=== PATIENT | female | born 1995 | race Caucasian/White ===

== ENCOUNTER → 2017-03-13 | Outpatient (CLI) | payer OTHER ==
[~2017-03-13] MED LIST: CEPH500C PO; ONDA4TAB10 SL
[2017-03-13 13:12] LABS: BASO % 0.3 %; BASO ABS # 0.02 K/uL (0-0.2); COMPLETE YES; EOS % 0.8 %; HEMATOCRIT 37.5 % (37-47); IG% 0.1 %; LYMPH % 19.2 %; LYMPH ABS # 1.47 K/uL (1.2-3.4); MEAN CELL VOLUME 92.6 fL (80-100); MEAN CORPUSCULAR HEMOGLOBIN 32.1 pg (25-34); MEAN CORPUSCULAR HGB CONC 34.7 g/dl (32-36); MEAN PLATELET VOLUME 11.5 fL (7.4-10.4); MONO % 11.4 %; NEUT % 68.2 %; PLATELET COUNT 212 K/uL (130-400); RED BLOOD COUNT 4.05 M/uL (4.2-5.4); WHITE BLOOD COUNT 7.66 K/uL (4.8-10.8)
[2017-03-15 01:19] LABS: CHLAMYDIA TRACH RNA*** NOT DETECTED (NOT DETECTED); GC (NEIS GONORRHOEAE)RNA** NOT DETECTED (NOT DETECTED)
== END | disposition home or self-care (01) ==
LOC: C.LAB1850 10:25
PROVIDERS: ATTEND Obstetrics & Gynecology
DX: Z34.91 Encounter for supervision of normal pregnancy, unspecified, first trimester (principal)

== ENCOUNTER 2017-04-10 14:06 | Emergency (ER) | payer OTHER ==
[~2017-04-10] VITALS: Ht 157.5 cm; Wt 45.0 kg
[~2017-04-10 14:06] MED LIST changes: -PREN1CHW PO
[2017-04-10 14:07] VITALS: TEMP 36.8; Ht 157.5 cm; Wt 45.0 kg
[2017-04-10] MEDS ORDERED: SODIUM CHLORIDE 0.9% 1000ML 2,000 ML IV STA (14:20)
[2017-04-10] MEDS ORDERED: ONDANSETRON INJ 2 MG/ML 2 ML VIAL IV STA (14:20)
[2017-04-10] MEDS ORDERED: FAMOTIDINE 20MG/5ML IV PUSH IV STA (14:51)
[2017-04-10 15:00] LABS: BASO % 0.2 %; BASO ABS # 0.02 K/uL (0-0.2); COMPLETE YES; HEMATOCRIT 40.4 % (37-47); IG% 0.2 %; LYMPH % 6.7 %; LYMPH ABS # 0.85 K/uL (1.2-3.4); MEAN CELL VOLUME 91.6 fL (80-100); MEAN CORPUSCULAR HEMOGLOBIN 32.4 pg (25-34); MEAN CORPUSCULAR HGB CONC 35.4 g/dl (32-36); MEAN PLATELET VOLUME 10.6 fL (7.4-10.4); MONO % 6.6 %; NEUT % 86.3 %; PLATELET COUNT 216 K/uL (130-400); RED BLOOD COUNT 4.41 M/uL (4.2-5.4); WHITE BLOOD COUNT 12.67 K/uL (4.8-10.8)
[2017-04-10 15:13] LABS: BUN/CREATININE RATIO 20.2 (10-20); CALCIUM 9.9 mg/dl (8.5-10.1); CREATININE 0.78 mg/dl (0.60-1.20); MAGNESIUM 1.9 mg/dl (1.8-2.4)
[2017-04-10] MEDS ORDERED: PREN1CHW PO (15:48)
[2017-04-10] MEDS ORDERED: ONDANSETRON HOME PACK 4MG OD TAB PO ONE (16:30)
--- NOTE | 2017-04-10 16:32 | EMERGENCY ROOM VISIT NOTE ---
History Report prepared by Royal: Bjorn Escalante Under the Supervision of: Dr. Debbie Velasquez M.D. First contact with patient: 14:10 Chief Complaint: VOMITING Stated Complaint: EXCESS VOMITTING, NOT GETTING FLUIDS DURING PREG Nursing Triage Summary: pt sent to the ED by OB for n/v for several days pt is 12 wks preg no c/o vag bleeding History of Present Illness The patient is a 22 year old female who presents to the Emergency Room with complaints of persistent vomiting beginning three days ago. She is 12 weeks with her first . She was seen by her OBGYN today and was referred to the ED. The patient states that she has been unable to keep down food or drink. She also complains of chest pain and nausea. She denies known fevers or vaginal bleeding. Source of History: patient Onset: Three days ago Quality: other (vomiting) Timing: other (persistent) Associated Symptoms: + chest pain, + nausea, No fevers Note: The patient denies vaginal bleeding. Review of Systems See HPI for pertinent positives & negatives. A total of 10 systems reviewed and were otherwise negative. Past Medical & Surgical Medical Problems: (1) Ovarian cyst Family History Cancer Gallbladder disease Heart disease Hypertension Kidney disease Kidney stones Seizures Social History Smoking Status: Never Smoker Alcohol Use: none Drug Use: none Marital Status: single Housing Status: lives with family Occupation Status: student Current/Historical Medications Scheduled Ondasetron Odt (Zofran Odt), 4 MG SL Q6H Multivitamins & Burnett (Alive Multi-Thelma 0.4-25 mg), 1 TAB PO DAILY Allergies Coded Allergies: No Known Allergies (Unverified , 03/03/17) Physical Exam Vital Signs Date Time Temp Pulse Resp B/P (MAP) Pulse Ox O2 Delivery O2 Flow Rate FiO2 04/10/17 16:39 84 16 114/70 98 04/10/17 15:36 86 15 100 04/10/17 15:31 103/69 04/10/17 15:06 80 18 98 04/10/17 15:05 80 04/10/17 15:01 110/72 04/10/17 14:56 77 20 107/69 97 Room Air 04/10/17 14:07 36.8 120 16 132/76 92 Room Air Physical Exam Vital signs reviewed. General: Well-appearing female, in no significant distress. HEENT: No scleral icterus, PERRLA, neck supple. Atraumatic. Dry mucous membranes. Cardiovascular: Regular rate and rhythm, no extra sounds. Pulmonary: Clear to auscultation bilaterally, normal work of breathing. Abdomen: Soft, nontender, nondistended, positive bowel sounds. Musculoskeletal: Atraumatic, no peripheral edema. Neurologic: Patient awake alert and oriented x 3, full strength in all 4 extremities. Cranial nerves 2 through 12 grossly intact. Skin: Warm, dry, no rash Medical Decision & Procedures Laboratory Results 04/10/17 14:47 Red Blood Count 4.41, Mean Corpuscular Volume 91.6, Mean Corpuscular Hemoglobin 32.4, Mean Corpuscular Hemoglobin Concent 35.4, Mean Platelet Volume 10.6, Neutrophils (%) (Auto) 86.3, Lymphocytes (%) (Auto) 6.7, Monocytes (%) (Auto) 6.6, Eosinophils (%) (Auto) 0.0, Basophils (%) (Auto) 0.2, Neutrophils # (Auto) 10.94, Lymphocytes # (Auto) 0.85, Monocytes # (Auto) 0.83, Eosinophils # (Auto) 0.00, Basophils # (Auto) 0.02 04/10/17 14:47 Test 04/10/17 00:00 04/10/17 14:47 Urine Color YELLOW Urine Appearance CLEAR (CLEAR) Urine pH 5.0 (4.5-7.5) Urine Specific [place] 1.028 (1.000-1.030) Urine Protein TRACE (NEG) Urine Glucose (UA) NEG (NEG) Urine Ketones 4+ (NEG) Urine Occult Blood NEG (NEG) Urine Nitrite NEG (NEG) Urine Bilirubin NEG (NEG) Urine Urobilinogen NEG (NEG) Urine Leukocyte Esterase MODERATE (NEG) Urine WBC (Auto) >30 /hpf (0-5) Urine RBC (Auto) 0-4 /hpf (0-4) Urine Hyaline Casts (Auto) 1-5 /lpf (0-5) Urine Epithelial Cells (Auto) >30 /lpf (0-5) Urine Bacteria (Auto) 2+ (NEG) White Blood Count 12.67 K/uL (4.8-10.8) Red Blood Count 4.41 M/uL (4.2-5.4) Hemoglobin 14.3 g/dL (12.0-16.0) Hematocrit 40.4 % (37-47) Mean Corpuscular Volume 91.6 fL (80-100) Mean Corpuscular Hemoglobin 32.4 pg (25-34) Mean Corpuscular Hemoglobin Concent 35.4 g/dl (32-36) Platelet Count 216 K/uL (130-400) Mean Platelet Volume 10.6 fL (7.4-10.4) Neutrophils (%) (Auto) 86.3 % Lymphocytes (%) (Auto) 6.7 % Monocytes (%) (Auto) 6.6 % Eosinophils (%) (Auto) 0.0 % Basophils (%) (Auto) 0.2 % Neutrophils # (Auto) 10.94 K/uL (1.4-6.5) Lymphocytes # (Auto) 0.85 K/uL (1.2-3.4) Monocytes # (Auto) 0.83 K/uL (0.11-0.59) Eosinophils # (Auto) 0.00 K/uL (0-0.5) Basophils # (Auto) 0.02 K/uL (0-0.2) RDW Standard Deviation 42.1 fL (36.4-46.3) RDW Coefficient of Variation 12.5 % (11.5-14.5) Immature Granulocyte % (Auto) 0.2 % Immature Granulocyte # (Auto) 0.03 K/uL (0.00-0.02) Anion Gap 15.0 mmol/L (3-11) Est Creatinine Clear Calc Drug Dose 81.0 ml/min Estimated GFR () 126.0 Estimated GFR (Non- 108.7 BUN/Creatinine Ratio 20.2 (10-20) Calcium Level 9.9 mg/dl (8.5-10.1) Magnesium Level 1.9 mg/dl (1.8-2.4) Total Bilirubin 0.5 mg/dl (0.2-1) Direct Bilirubin 0.2 mg/dl (0-0.2) Aspartate Amino Transf (AST/SGOT) 16 U/L (15-37) Alanine Aminotransferase (ALT/SGPT) 22 U/L (12-78) Alkaline Phosphatase 49 U/L (45-117) Total Protein 8.2 gm/dl (6.4-8.2) Albumin 4.2 gm/dl (3.4-5.0) Lipase 123 U/L (73-393) Laboratory results per my review. Medications Administered Medications (Trade) Dose Ordered Sig/Maria Isabel Route Start Time Stop Time Status Last Admin Dose Admin Sodium Chloride 2,000 ml @ 999 mls/hr Q2H1M STAT IV 04/10/17 14:20 04/10/17 16:20 DC 04/10/17 14:51 999 MLS/HR Ondansetron HCl (Zofran Inj) 4 mg NOW STAT IV 04/10/17 14:20 04/10/17 14:23 DC 04/10/17 14:51 4 MG Famotidine (Pepcid 20mg Iv Push) 20 mg ONE STAT IV 04/10/17 14:51 04/10/17 14:53 DC 04/10/17 14:59 20 MG Ondansetron HCl (ZOFRAN ODT 4MG Home Pack) 1 homepack UD ONCE PO 04/10/17 16:30 04/10/17 16:31 DC 04/10/17 16:36 1 HOMEPACK ED Course 1425: Past medical records reviewed. The patient was evaluated in room B8. A complete history and physical examination was performed. 1420: Ordered Zofran Inj 4 mg IV, Sodium Chloride 2000 ml @ 999 mls/hr IV. 1451: Ordered Pepcid 20 mg IV. 1620: Upon reevaluation, the patient appeared to have improvement of her symptoms. I discussed findings with her. She verbalized agreement of the treatment plan. The patient was discharged home. 1630: Ordered Zofran Odt 4 mg Home Pack PO. Medical Decision Differential diagnosis: Etiologies such as gastroenteritis, food borne illness, infections, appendicitis , diverticulitis, inflammatory bowel disease, obstruction, GI bleed, biliary pathology, as well as others were entertained. This patient was evaluated and appeared to be in some discomfort. IV access was obtained and laboratory work was drawn. The patient was placed on the surveillance monitor and found to be in a normal sinus rhythm. She was hydrated with normal saline solution, given IV Zofran and Pepcid. Laboratory work is fairly unrevealing. UA is questionable for infection as it is largely contaminated. This will be sent for culture. The patient is feeling much improved. She was given 4 mg Zofran home pack. She will contact the OIL SPREADER OPERATOR office tomorrow by phone for further recommendations regarding nausea and . She was discharged with care of her significant other and will return to the ER for worsening of symptoms or any medical concerns. Medication Reconcilliation Current Medication List: was personally reviewed by me Blood Pressure Screening Patient's blood pressure: Elevated blood pressure Blood pressure disposition: Elevated BP felt to be situational Impression Primary Impression: Vomiting Scribe Attestation The scribe's documentation has been prepared under my direction and personally reviewed by me in its entirety. I confirm that the note above accurately reflects all work, treatment, procedures, and medical decision making performed by me. Departure Information Dispostion Home / Self-Care Referrals No Doctor, Assigned (PCP) Forms HOME CARE DOCUMENTATION FORM, IMPORTANT VISIT INFORMATION Patient Instructions [facility] Additional Instructions Diagnosis: Vomiting and Please drink plenty of clear fluids. Zofran 4 mg ODT every 6 hours as needed for nausea. Contact your OIL SPREADER OPERATOR physician's office tomorrow for recommendations regarding nausea/vomiting. Return to the emergency department for worsening of symptoms or any medical concerns.
[2017-04-10 16:37] LABS: URINE APPEARANCE CLEAR (CLEAR); URINE BILIRUBIN NEG (NEG); URINE COLOR YELLOW; URINE EPITHELIAL CELL AUTO >30 /lpf (0-5); URINE NITRITE NEG (NEG); URINE SPECIFIC GRAVITY 1.028 (1.000-1.030); UROBILINOGEN NEG (NEG); ZZUR CULT IF INDIC CLEAN CATCH YES
[2017-04-10 16:39] VITALS: BP 114/70; PULSE 84; O2SAT 98
[2017-04-10 16:49] LABS: MANUAL MICROSCOPIC REQUIRED? NO; REVIEW REQ? NO
== END 2017-04-10 16:47 | disposition home or self-care (01) ==
LOC: C.EDB 14:07
DX: O21.9 Vomiting of pregnancy, unspecified (principal); Z3A.12 12 weeks gestation of pregnancy; N83.209 Unspecified ovarian cyst, unspecified side; Z80.9 Family history of malignant neoplasm, unspecified; Z83.79 Family history of other diseases of the digestive system; Z82.49 Family history of ischemic heart disease and other diseases of the circulatory system; Z84.1 Family history of disorders of kidney and ureter; Z82.0 Family history of epilepsy and other diseases of the nervous system

== ENCOUNTER → 2017-04-10 | Outpatient (CLI) | payer OTHER ==
[~2017-04-10] MED LIST changes: +PREN1CHW PO
[2017-04-10 16:08] LABS: URINE APPEARANCE CLEAR (CLEAR); URINE BILIRUBIN NEG (NEG); URINE COLOR YELLOW; URINE EPITHELIAL CELL AUTO >30 /lpf (0-5); URINE NITRITE NEG (NEG); URINE SPECIFIC GRAVITY 1.031 (1.000-1.030); UROBILINOGEN NEG (NEG)
[2017-04-10 16:13] LABS: MANUAL MICROSCOPIC REQUIRED? NO; REVIEW REQ? NO
== END | disposition home or self-care (01) ==
LOC: C.LABSPEC 15:40
PROVIDERS: ATTEND Obstetrics & Gynecology
DX: Z34.91 Encounter for supervision of normal pregnancy, unspecified, first trimester (principal); Z3A.00 Weeks of gestation of pregnancy not specified

== ENCOUNTER → 2017-05-09 | Outpatient (CLI) | payer OTHER ==
[~2017-05-09] MED LIST changes: -CEPH500C PO; +PREN1CHW PO
[2017-05-09 15:25] LABS: GTGD 50 Grams
[2017-05-11 14:27] LABS: AFP CONCENTRATION 26.1 NG/ML; AFP MULTIPLE OF MEDIAN 0.63; AFPTS GESTATIONAL AGE 16.1 WEEKS; AFPTS INSULIN DEP DIABETIC? NO; AFPTS MATERNAL WT 109 LBS; ALPHA-FETOPROTEIN RACE CAUCASIAN=W; EDD DETERMINED BY ULTRASOUND; ESTRIOL MULTIPLE OF MEDIAN 1.39; HISTORY OF NTD NO; INHIBIN A 110 PG/ML; INHIBIN A MOM 0.54; REPEAT SAMPLE? NO; hCG MULTIPLE OF MEDIAN 0.97
== END | disposition home or self-care (01) ==
LOC: C.LAB1850 12:30
PROVIDERS: ATTEND Obstetrics & Gynecology
DX: Z34.02 Encounter for supervision of normal first pregnancy, second trimester (principal)

== ENCOUNTER → 2017-06-07 | Outpatient (CLI) | payer OTHER | END | disposition home or self-care (01) | LOC: C.LABSPEC 18:00 | PROVIDERS: ATTEND Nurse Practitioner Adult Health | DX: R10.9 Unspecified abdominal pain (principal) ==

== ENCOUNTER → 2017-06-13 | Outpatient (CLI) | payer OTHER ==
--- NOTE | 2017-06-13 12:49 | DIAGNOSTIC IMAGING REPORT ---
RENAL ULTRASOUND CLINICAL HISTORY: Calcium oxalate crystals in urine. Right-sided back pain. 20 weeks . COMPARISON STUDY: None. TECHNIQUE: Sonography of the kidneys and the urinary bladder was performed. FINDINGS: The right kidney measures 9.9 x 4.5 x 5.5 cm and the left measures 9.6 x 4.4 x 4.9 cm. There is mild bilateral hydronephrosis. Echogenic focus within a right calyx could reflect a small stone. Both ureteral jets were identified. Renal echogenicity, size and cortical thickness are normal. IMPRESSION: 1. Mild bilateral hydronephrosis. 2. Visualization of both ureteral jets. 2. Possible punctate right renal calculus. Electronically signed by: Aj Breen M.D. 06/13/2017 12:48 PM Dictated Date/Time: 06/13/2017 12:46 PM
== END | disposition home or self-care (01) ==
LOC: C.ULTR 12:04
PROVIDERS: ATTEND Nurse Practitioner Adult Health
DX: R82.99 Other abnormal findings in urine (principal)

== ENCOUNTER → 2017-08-04 | Outpatient (CLI) | payer OTHER ==
[2017-08-04 13:15] LABS: HEMATOCRIT 36.2 % (37-47); HEMOGLOBIN 12.2 g/dL (12.0-16.0)
== END | disposition home or self-care (01) ==
LOC: C.LAB1850 11:31
PROVIDERS: ATTEND Obstetrics & Gynecology
DX: Z34.03 Encounter for supervision of normal first pregnancy, third trimester (principal)

== ENCOUNTER → 2017-09-29 | Outpatient (CLI) | payer OTHER ==
[~2017-09-29] MED LIST changes: -ONDA4TAB10 SL
== END | disposition home or self-care (01) ==
LOC: C.LABSPEC 15:48
PROVIDERS: ATTEND Obstetrics & Gynecology
DX: Z34.03 Encounter for supervision of normal first pregnancy, third trimester (principal); Z3A.00 Weeks of gestation of pregnancy not specified

== ENCOUNTER → 2017-12-11 | Outpatient (CLI) | payer OTHER | END | disposition home or self-care (01) | LOC: C.PAPS 17:50 | PROVIDERS: ATTEND Obstetrics & Gynecology | DX: Z39.2 Encounter for routine postpartum follow-up (principal) ==

== ENCOUNTER 2022-07-27 07:28 | Inpatient (IN) ==
[2022-07-27] MEDS ORDERED: OXYTOCIN 30 UNITS/500 ML BAG IV PRN ×2 (14:03→20:10)
[2022-07-27] MEDS ORDERED: LIDOCAINE 1% LOCAL 20 ML VIAL INFIL PRN (14:03)
--- NOTE | 2022-07-27 14:09 | History & Physical Report ---
Date of Service July 27, 2022 History of Present Illness Chief Complaint: onset of contractions Primary Care Provider: Renetta Joshi MD 27 F P1001 at 40.2 weeks admitted in early labor. Allergies Allergy/AdvReac Type Severity Reaction Status Date / Time No Known Allergies Allergy Verified 12/06/21 16:12 Home Medications Medication Instructions Recorded Confirmed Type prenat.vits,jaylen,[id number] 1 tab PO DAILY 07/27/22 07/27/22 History Patient History Medical History Encounter for contraceptive management Gave to child recently Surgical History Hx of tonsillectomy Family History Grandmother (Paternal) Cancer Mother Migraine Father Substance abuse Daughter No problems noted. 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 Current Living Situation: Family Current Living Situation Comment: Lives with fiance and daughter current occupational status: employed and unemployed current occupation: Homemaker Other Information That Helps Us Care for You: No Feels Safe at Home: Yes Safety Concerns: Feels Safe At This Time Childhood Exposure to Second-Hand Smoke: Yes (father smoked.) caffeine: Yes (Tea on occasion.) during the past year weight has: remained stable Dental Care, Regularly: Yes Physical Activity Frequency: Daily Seatbelt Use: always Sunscreen Use: Yes Gender Identity: Female Assistive Devices: Glasses Assistive Devices Comment: pt. wears glasses occasionally OB History x1 PERIOPERATIVE NURSE History neg Review of Systems All systems reviewed & are unremarkable except as noted in HPI & below Physical Exam Constitutional: WD/WN, vitals as above Eyes: PERRL, conjunctivae normal, anicteric sclerae Respiratory: normal respiratory effort, lungs clear to auscultation Cardiovascular: RRR, no murmur, no edema Musculoskeletal: Extremities: extremities normal to inspection Skin: no rashes, warm and dry Neurologic: patellar DTR's 2+ bilat, sensation intact Psychiatric: A+Ox3, euthymic affect Genitourinary: OB Exam Abdomen: + fundal height and + vertex Manual OB Exam: + cervical dilation 4 cm, + cervical effacement 70% and + station -2 OB Exam Monitor Tracing: + external FHT monitor used, + external uterine monitor used, + category I and + normal FHT variability cervix has changed from 2 cm to 4 cm and more uncomfortable. Will admit in labor. Results & Data Vital Signs (Past 12 Hours) Vital Signs Temp Pulse Resp BP 07/27/22 12:04 36.6 C 84 20 112/75 07/27/22 10:43 103 H 20 120/72 07/27/22 07:34 36.7 C 89 20 113/77 Code Status & VTE Plan VTE Prophylaxis Plan VTE Prophylaxis will be ordered: No Monitoring External Monitor Cat 1
--- NOTE | 2022-07-27 14:42 | Communication Note ---
Date of Service: July 27, 2022 Patient stated having increasing labor pains. The epidural was bolused with 4mL of lido 2% with epi 1:200K. The patient stated her labor pains was improved. VSS throughout.
[2022-07-27 14:48] LABS: Hematocrit (blood only) 35.1 % (37.0-47.0); Hemoglobin 12.1 g/dl (12.0-16.0); Mean Corpuscular Hemoglobin 30.6 pg (25.0-34.0); Mean Corpuscular Hgb Conc 34.5 g/dL (32.0-36.0); Mean Corpuscular Volume 88.6 fL (80.0-100.0); Mean Platelet Volume 11.6 fL (9.4-12.4); Platelet Count 182 K/uL (130-400); RDW Coefficient of Variation 12.9 % (11.5-14.5); RDW Standard Deviation 41.3 fL (36.4-46.3); Red Blood Count 3.96 M/uL (4.20-5.40)
--- NOTE | 2022-07-27 15:12 | Labor Progress Brief Note ---
Date of Service July 27, 2022 Assessment & Plan Admission and Anticipated Discharge Date Admission Date: July 27, 2022 Physical Exam Genitourinary: Manual OB Exam: + cervical dilation 4 cm and 5 cm, + cervical effacement 70%, + station -2 and + amniotic fluid clear OB Exam Monitor Tracing: + external FHT monitor used, + external uterine monitor used, + category I and + normal FHT variability AROM with Amni-hook clear fluid Results & Data Vital Signs (Past 12 Hours) Vital Signs Temp Pulse Resp BP 07/27/22 12:04 36.6 C 84 20 112/75 07/27/22 10:43 103 H 20 120/72 07/27/22 07:34 36.7 C 89 20 113/77
[2022-07-27] MEDS: LACTATED RINGER'S 1,000 ML IV PRN ×2 (16:33→17:31)
[2022-07-27] MEDS ORDERED: ePHEDrine sulfate 50 MG/ML AMP ONE (16:42)
[2022-07-27] MEDS ORDERED: BUPIVACAINE 0.25% PF 30 ML VIAL ONE (16:43)
[2022-07-27] MEDS ORDERED: fentaNYL citrate PF 100 MCG/2 ML VIAL ONE (16:43)
[2022-07-27] MEDS ORDERED: fentaNYL 2MCG/ML ROPIVACAINE 1.25MG/ML 100 ML BAG EPI ONE (16:43)
[2022-07-27] MEDS ORDERED: SODIUM CHLORIDE 0.9% PF INJ 10 ML VIAL ONE (16:43)
--- NOTE | 2022-07-27 16:48 | Anesthesiology Consultation ---
Date of Service July 27, 2022 Assessment & Plan Chart Review Chart Review: Acceptable Risk for Labor Epidural (Patient requests spinal instead of epidural) Consults Requested none ASA ASA2 Proposed Anesthesia Anesthesia Type: Spinal Risk / Benefits Reviewed With: PT / POA / Parent / Guardian, Accepts Plan and Informed Consent Obtained History Height/Weight Height: 5 ft 2 in Weight: 67.041 kg Allergies Allergy/AdvReac Type Severity Reaction Status Date / Time No Known Allergies Allergy Verified 12/06/21 16:12 Medications Home Medications Medication Instructions Recorded Confirmed Last Taken prenat.vits,jaylen,[id number] 1 tab PO DAILY 07/27/22 07/27/22 Unknown Active Medications Generic Name Dose Route Start Last Admin Trade Name Freq PRN Reason Stop Dose Admin Lactated Ringer's 1,000 mls @ 125 mls/hr 07/27/22 14:03 07/27/22 16:33 Lr IV 07/29/22 14:02 999 mls/hr .Q8H PRN Administration L&D Protocol Protocol Past Medical History Medical History Encounter for contraceptive management Gave to child recently Exercise / Class Metabolic Activity II 4-5 Yardwork/Stairs/Walk up hill Past Family History Family History Grandmother (Paternal) Cancer Mother Migraine Father Substance abuse Daughter No problems noted. Denies family history of Ovarian cancer Prostate cancer Myocardial infarction Breast cancer Colorectal cancer Past Surgical History Surgical History Hx of tonsillectomy Past Anesthesia History No Hx of Anesthesia Complications and No Family Hx of Anesthesia Complications History of PONV No Hx of PONV and No Hx of Motion Sickness Social History Smoking Status: Never smoker Hx Alcohol Use: No Hx Substance Use: No substance use type: does not use Physical Exam Vital Signs Last Vital Signs Temp 98.1 F 07/27/22 16:05 Pulse 72 07/27/22 16:05 Resp 20 07/27/22 16:05 BP 111/71 07/27/22 16:05 ENMT Mouth: no dentition abnormality Thyromental Distance: > or= 3.5 Finger Breadths Mallampati Class: II Neck normal visual inspection Respiratory normal respiratory effort Auscultation: lungs clear to auscultation bilaterally Cardiovascular Rate/Rhythm: regular rate and regular rhythm Testing Laboratory Results 07/27/22 14:22
--- NOTE | 2022-07-27 19:57 | Delivery Summary ---
Vaginal Delivery Summary Date of Service July 27, 2022 Vaginal Delivery Summary Delivery Note live male JUNA F over intact perineum with delayed cord clamping with nuchal cord x1 reduced at delivery of head. Apgars and weight pending. Cord blood obtained followed by spontaneous delivery of intact placenta. No tears. Small right upper labial swelling that may be beginning of a hematoma but could also be inflammation as patient states that this are has been swollen in the past e naseem when not . EBL 200 ml. Final sponge and instrument count are correct. Mom and baby stable.
[2022-07-27] MEDS ORDERED: bisacodyL 10 MG SUPP PR PRN (20:10)
[2022-07-27] MEDS ORDERED: HYDROCORTISONE ACETATE 25 MG SUPP PR PRN (20:10)
[2022-07-27] MEDS ORDERED: DIPHTHERIA/TETANUS/PERTUSSIS 0.5mL SYR/VIAL (Age 7+yrs) IM ONE (20:10)
[2022-07-27] MEDS ORDERED: ACETAMINOPHEN 325 MG TAB PO PRN (20:10)
[2022-07-27] MEDS ORDERED: BENZOCAINE 20% AER SPR 82.5 GM CAN EXT PRN (20:10)
[2022-07-27] MEDS ORDERED: OXYTOCIN 20 UNITS in LACTATED RINGER'S 1,000 ML IV SCH (20:10)
[2022-07-27] MEDS: DOCUSATE SODIUM 100 MG CAP PO SCH (20:51)
[2022-07-27] MEDS: IBUPROFEN 600 MG TAB PO PRN (20:51)
[2022-07-28] MEDS: IBUPROFEN 600 MG TAB PO PRN ×3 (00:53→19:53)
[2022-07-28 06:52] LABS: Hematocrit (blood only) 30.1 % (37.0-47.0); Hemoglobin 10.2 g/dl (12.0-16.0); Mean Corpuscular Hemoglobin 30.2 pg (25.0-34.0); Mean Corpuscular Hgb Conc 33.9 g/dL (32.0-36.0); Mean Corpuscular Volume 89.1 fL (80.0-100.0); Mean Platelet Volume 11.6 fL (9.4-12.4); Platelet Count 164 K/uL (130-400); Red Blood Count 3.38 M/uL (4.20-5.40); White Blood Count 17.33 K/ul (4.8-10.8)
[2022-07-28] MEDS: DOCUSATE SODIUM 100 MG CAP PO SCH ×2 (08:30→21:44)
[2022-07-28] MEDS: PRENATAL VITAMIN 1 TAB PO SCH ×2 (08:30)
[2022-07-28] MEDS: FERROUS SULFATE 325 MG TAB PO SCH (08:30)
--- NOTE | 2022-07-28 09:06 | Anesthesiology Progress Note ---
Date of Service July 28, 2022 Anesthesia Post Procedure Vital Signs Vital Signs: Temp Pulse Pulse Resp BP BP Pulse Ox 07/28/22 04:00 98.1 F 100 H 18 117/70 07/27/22 23:00 97.7 F 106 H 18 114/73 98 07/27/22 20:50 18 07/27/22 20:35 18 07/27/22 20:20 98.1 F 18 07/27/22 20:05 18 98 07/27/22 19:50 18 07/27/22 17:59 97.7 F 20 07/27/22 17:00 98.2 F 20 07/27/22 21:50 114 H 116/68 07/27/22 21:35 122 H 111/70 07/27/22 21:20 96 H 116/72 07/27/22 21:05 109 H 110/71 07/27/22 20:50 97 H 108/66 07/27/22 20:35 94 H 108/62 07/27/22 20:20 108 H 113/69 07/27/22 20:05 103 H 111/64 07/27/22 19:50 116 H 112/68 07/27/22 19:40 122 H 93 07/27/22 19:39 125 H 127/64 07/27/22 19:30 18 07/27/22 19:30 98.2 F 18 07/27/22 19:32 136 H 88 L 07/27/22 19:27 110 H 96 07/27/22 19:22 126 H 94 07/27/22 19:17 93 07/27/22 19:17 112 H 07/27/22 19:17 105 H 90 07/27/22 19:12 110 H 98 07/27/22 19:10 99 H 122/82 07/27/22 19:07 107 H 96 07/27/22 19:02 101 H 96 07/27/22 18:57 109 H 96 07/27/22 18:55 108 H 117/70 07/27/22 18:52 99 H 97 07/27/22 18:47 99 H 97 07/27/22 18:42 103 H 97 07/27/22 18:40 88 120/78 07/27/22 18:37 112 H 97 07/27/22 18:32 90 97 07/27/22 18:27 93 H 97 07/27/22 18:25 93 H 116/69 07/27/22 18:22 86 97 07/27/22 18:17 92 H 97 07/27/22 18:12 91 H 97 07/27/22 18:09 89 101/55 L 07/27/22 18:07 91 H 99 07/27/22 18:02 98 H 97 07/27/22 17:57 99 H 97 07/27/22 17:54 95 H 100/55 L 07/27/22 17:52 102 H 96 07/27/22 17:47 104 H 95 07/27/22 17:42 96 07/27/22 17:42 98 H 07/27/22 17:42 96 H 108/57 L 07/27/22 17:37 89 96 07/27/22 17:32 96 H 96 07/27/22 17:27 96 H 97 07/27/22 17:25 86 112/67 07/27/22 17:22 96 H 97 07/27/22 17:17 86 97 07/27/22 17:12 88 96 07/27/22 17:07 90 97 07/27/22 17:08 86 115/74 07/27/22 17:06 95 H 113/72 07/27/22 17:04 79 111/74 07/27/22 17:02 96 07/27/22 17:02 84 07/27/22 17:02 78 119/78 07/27/22 17:00 69 115/77 07/27/22 16:57 77 97 07/27/22 16:58 77 111/73 94 07/27/22 16:55 100 H 116/70 07/27/22 16:53 88 119/75 07/27/22 16:52 102 H 98 07/27/22 16:05 98.1 F 72 20 111/71 07/27/22 12:04 97.9 F 84 20 112/75 07/27/22 10:43 103 H 20 120/72 O2 Del Method 07/28/22 04:00 07/27/22 23:00 Room Air 07/27/22 20:50 07/27/22 20:35 07/27/22 20:20 07/27/22 20:05 07/27/22 19:50 07/27/22 17:59 07/27/22 17:00 07/27/22 21:50 07/27/22 21:35 07/27/22 21:20 07/27/22 21:05 07/27/22 20:50 07/27/22 20:35 07/27/22 20:20 07/27/22 20:05 07/27/22 19:50 07/27/22 19:40 07/27/22 19:39 07/27/22 19:30 07/27/22 19:30 07/27/22 19:32 07/27/22 19:27 07/27/22 19:22 07/27/22 19:17 07/27/22 19:17 07/27/22 19:17 07/27/22 19:12 07/27/22 19:10 07/27/22 19:07 07/27/22 19:02 07/27/22 18:57 07/27/22 18:55 07/27/22 18:52 07/27/22 18:47 07/27/22 18:42 07/27/22 18:40 07/27/22 18:37 07/27/22 18:32 07/27/22 18:27 07/27/22 18:25 07/27/22 18:22 07/27/22 18:17 07/27/22 18:12 07/27/22 18:09 07/27/22 18:07 07/27/22 18:02 07/27/22 17:57 07/27/22 17:54 07/27/22 17:52 07/27/22 17:47 07/27/22 17:42 07/27/22 17:42 07/27/22 17:42 07/27/22 17:37 07/27/22 17:32 07/27/22 17:27 07/27/22 17:25 07/27/22 17:22 07/27/22 17:17 07/27/22 17:12 07/27/22 17:07 07/27/22 17:08 07/27/22 17:06 07/27/22 17:04 07/27/22 17:02 07/27/22 17:02 07/27/22 17:02 07/27/22 17:00 07/27/22 16:57 07/27/22 16:58 07/27/22 16:55 07/27/22 16:53 07/27/22 16:52 07/27/22 16:05 07/27/22 12:04 07/27/22 10:43 Pain Intensity Bilateral Episiotomy/Laceration: Pain Intensity: 2 Transfer of Care Handoff Completed per policy Notes Mental Status: alert / awake / arousable and participated in evaluation Nausea / Vomiting: adequately controlled Pain: adequately controlled Airway Patency, RR, SpO2: stable & adequate BP & HR: stable & adequate Hydration State: stable & adequate Neuraxial Anesthesia: was administered and sensory block is resolving Anesthetic Complications: no major complications apparent and Pt Satisfied with anesthetic care
--- NOTE | 2022-07-28 09:34 | Obstetrical Progress Note ---
Date of Service July 28, 2022 Assessment & Plan Admission and Anticipated Discharge Date Admission Date: July 27, 2022 Subjective Patient is seen and examined. She feels well, no complaints. Ambulating without dizziness Voiding without difficulty Tolerating regular diet with out N&V Bleeding is minimal No fever/ chills/ CP/ SOB/ N&V/ Leg pain Breast feeding without problems Vital Signs Temp Pulse Pulse Resp BP BP Pulse Ox 07/28/22 04:00 36.7 C 100 H 18 117/70 07/27/22 23:00 36.5 C 106 H 18 114/73 98 07/27/22 21:50 114 H 116/68 07/27/22 21:35 122 H 111/70 O2 Del Method 07/28/22 04:00 07/27/22 23:00 Room Air 07/27/22 21:50 07/27/22 21:35 Lab Results 07/27/22 07/27/22 07/28/22 Range/Units 14:00 14:22 05:54 WBC 16.00 H 17.33 H (4.8-10.8) K/ul RBC 3.96 L 3.38 L (4.20-5.40) M/uL Hgb 12.1 10.2 L (12.0-16.0) g/dl Hct 35.1 L 30.1 L (37.0-47.0) % MCV 88.6 89.1 (80.0-100.0) fL MCH 30.6 30.2 (25.0-34.0) pg MCHC 34.5 33.9 (32.0-36.0) g/dL RDW Std Deviation 41.3 42.0 (36.4-46.3) fL RDW Coeff of Steve 12.9 13.0 (11.5-14.5) % Plt Count 182 164 (130-400) K/uL MPV 11.6 11.6 (9.4-12.4) fL SARS-CoV-2, RNA, NAAT NEGATIVE (NEGATIVE) PE: General: Alert, orientedx3, NAD Abd: soft, NT, fundus firm, below Umbilicus Perineum intact, Lochia rubra minimal Ext; NT, no edema AP: 27 yo s/p , ppd# 1 VSS Afebrile doing well CBC in am Continue routine care All questions were answered D/C home tomorrow Results & Data Vital Signs (Past 12 Hours) Vital Signs Temp Pulse Pulse Resp BP BP Pulse Ox 07/28/22 04:00 36.7 C 100 H 18 117/70 07/27/22 23:00 36.5 C 106 H 18 114/73 98 07/27/22 21:50 114 H 116/68 07/27/22 21:35 122 H 111/70 O2 Del Method 07/28/22 04:00 07/27/22 23:00 Room Air 07/27/22 21:50 07/27/22 21:35
[2022-07-28] MEDS ORDERED: bisacodyL 5 MG TABEC PO SCH (20:00)
[2022-07-29 06:38] LABS: Basophils # (auto) 0.06 K/uL (0-0.2); Basophils % (auto) 0.5 %; Eosinophils # (auto) 0.18 K/uL (0-0.50); Eosinophils % (auto) 1.4 %; Hematocrit (blood only) 30.7 % (37.0-47.0); Hemoglobin 10.4 g/dl (12.0-16.0); Immature Granulocytes # (auto) 0.05 K/uL (0.01-0.20); Immature Granulocytes % (auto) 0.4 %; Lymphocytes # (auto) 2.61 K/uL (1.2-3.4); Lymphocytes % (auto) 20.3 %; Mean Corpuscular Hemoglobin 30.3 pg (25.0-34.0); Mean Corpuscular Hgb Conc 33.9 g/dL (32.0-36.0); Mean Corpuscular Volume 89.5 fL (80.0-100.0); Mean Platelet Volume 11.4 fL (9.4-12.4); Monocytes # (auto) 1.24 K/uL (0.11-0.59); Monocytes % (auto) 9.6 %; Neutrophils # (auto) 8.72 K/uL (1.40-6.50); Neutrophils % (auto) 67.8 %; Platelet Count 175 K/uL (130-400); RDW Coefficient of Variation 13.2 % (11.5-14.5); RDW Standard Deviation 43.1 fL (36.4-46.3); Red Blood Count 3.43 M/uL (4.20-5.40); White Blood Count 12.86 K/ul (4.8-10.8)
[2022-07-29] MEDS: PRENATAL VITAMIN 1 TAB PO SCH ×2 (08:12→08:13)
[2022-07-29] MEDS: FERROUS SULFATE 325 MG TAB PO SCH (08:12)
[2022-07-29] MEDS: IBUPROFEN 600 MG TAB PO PRN (08:12)
[2022-07-29] MEDS: DOCUSATE SODIUM 100 MG CAP PO SCH (08:12)
--- NOTE | 2022-07-29 08:34 | Obstetrical Progress Note ---
Date of Service July 29, 2022 Assessment & Plan (1) Normal course: Continue routine course Discharge home today with instructions Follow-up in clinic in 3 and 6 weeks Subjective Ambulation: ambulating normally Voiding: no voiding problems Passing Gas:: Yes Diet Tolerance:: regular diet Lochia:: Moderate Feeding Type:: breast feeding Current Pain Level(1-10): 1 Patient comfortable sitting in bed at this time, no complaints. Would like to go home today Physical Exam Constitutional WD/WN, vitals as above Respiratory normal respiratory effort, lungs clear to auscultation Cardiovascular RRR, no murmur, no edema Gastrointestinal (Abdomen) normal bowel sounds, soft, nontender, no hepatosplenomegaly Results & Data Vital Signs (Past 12 Hours) Vital Signs Temp Pulse Resp BP Pulse Ox O2 Del Method 07/28/22 23:04 36.6 C 75 18 105/67 96 Room Air Laboratory Results Laboratory Results WBC 12.86 K/ul (4.8-10.8) H 07/29/22 06:02 RBC 3.43 M/uL (4.20-5.40) L 07/29/22 06:02 Hgb 10.4 g/dl (12.0-16.0) L 07/29/22 06:02 Hct 30.7 % (37.0-47.0) L 07/29/22 06:02 MCV 89.5 fL (80.0-100.0) 07/29/22 06:02 MCH 30.3 pg (25.0-34.0) 07/29/22 06:02 MCHC 33.9 g/dL (32.0-36.0) 07/29/22 06:02 RDW Std Deviation 43.1 fL (36.4-46.3) 07/29/22 06:02 RDW Coeff of Steve 13.2 % (11.5-14.5) 07/29/22 06:02 Plt Count 175 K/uL (130-400) 07/29/22 06:02 MPV 11.4 fL (9.4-12.4) 07/29/22 06:02 Immature Gran % (Auto) 0.4 % 07/29/22 06:02 Neut % (Auto) 67.8 % 07/29/22 06:02 Lymph % (Auto) 20.3 % 07/29/22 06:02 [place] % (Auto) 9.6 % 07/29/22 06:02 Eos % (Auto) 1.4 % 07/29/22 06:02 Baso % (Auto) 0.5 % 07/29/22 06:02 Neut # (Auto) 8.72 K/uL (1.40-6.50) H 07/29/22 06:02 Lymph # (Auto) 2.61 K/uL (1.2-3.4) 07/29/22 06:02 [place] # (Auto) 1.24 K/uL (0.11-0.59) H 07/29/22 06:02 Eos # (Auto) 0.18 K/uL (0-0.50) 07/29/22 06:02 Baso # (Auto) 0.06 K/uL (0-0.2) 07/29/22 06:02 Immature Gran # (Auto) 0.05 K/uL (0.01-0.20) 07/29/22 06:02 SARS-CoV-2, RNA, NAAT NEGATIVE (NEGATIVE) 07/27/22 14:00
== END 2022-07-29 15:00 | disposition home or self-care (01) | DRG 807 ==
LOC: OPB 07:28 → 4S1 07:30 → 4E2 22:30
DX: O69.81X0 Labor and delivery complicated by cord around neck, without compression, not applicable or unspecified; Z3A.40 40 weeks gestation of pregnancy; Z37.0 Single live birth